=== PATIENT | male | born 1970 | race Caucasian/White ===

== ENCOUNTER 2019-03-13 13:44 | Emergency (ER) | payer MEDICAID ==
[~2019-03-13] VITALS: Ht 172.7 cm; Wt 61.2 kg
[2019-03-13] MEDS ORDERED: KETOROLAC 30 MG/1 ML IM ONE (14:30)
[2019-03-13] MEDS ORDERED: ONDANSETRON ODT 4 MG PO ONE (14:30)
[2019-03-13] MEDS ORDERED: KETOROLAC 30 MG/1 ML ONE (14:34)
[2019-03-13] MEDS ORDERED: ONDANSETRON ODT 4 MG ONE (14:35)
[2019-03-13 15:01] LABS: RAPID INFLUENZA A Negative (Negative); RAPID INFLUENZA B Negative (Negative)
[2019-03-13] MEDS ORDERED: CEFTRIAXONE 1,000 MG ONE (15:28)
[2019-03-13] MEDS ORDERED: CEFTRIAXONE 1,000 MG IM ONE (15:30)
[2019-03-13 15:42] VITALS: BP 99/75
== END 2019-03-13 15:46 | disposition home or self-care (01) ==
LOC: ED 15:38
DX: J15.9 Unspecified bacterial pneumonia (principal); M79.10 Myalgia, unspecified site
CPT/HCPCS: 71046; 87400; 96372; 99284; J0696; J1885; Q0162